=== PATIENT | female | born 2000 | race Caucasian/White ===

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

== ENCOUNTER 2022-10-04 21:32 | Emergency (ER) | payer SELFPAY ==
[2022-10-04] MEDS ORDERED: Acetaminophen 325 MG Tab PO ONE (22:06)
[2022-10-04] MEDS ORDERED: Ketorolac 30 MG/ML SDV IM ONE (22:56)
== END 2022-10-04 23:20 | disposition home or self-care (01) ==
LOC: MW.ED 21:32
DX: R07.89 Other chest pain (principal); Z91.09 Other allergy status, other than to drugs and biological substances
CPT/HCPCS: 71046; 93005; 96372; 99285; A9270; J1885; 93010; 99283

== ENCOUNTER 2022-11-23 21:01 | Emergency (ER) | payer SELFPAY ==
[2022-11-23] MEDS ORDERED: Cyclobenzaprine 10 MG Tab PO ONE (23:34)
[2022-11-23] MEDS ORDERED: Ibuprofen 600 MG Tab PO ONE (23:34)
== END 2022-11-23 23:44 | disposition home or self-care (01) ==
LOC: MW.ED 21:01
DX: S70.02XA Contusion of left hip, initial encounter (principal); S20.212A Contusion of left front wall of thorax, initial encounter; M41.9 Scoliosis, unspecified; Z91.048 Other nonmedicinal substance allergy status; Z79.899 Other long term (current) drug therapy; W00.0XXA Fall on same level due to ice and snow, initial encounter
CPT/HCPCS: 71101; 72100; 73502; 73562; 81025; 99283; A9270

== ENCOUNTER 2023-01-27 18:43 | Emergency (ER) | payer SELFPAY ==
[2023-01-27] MEDS ORDERED: Sodium Chloride 0.9% 1,000 ML IV ONE (20:03)
[2023-01-27] MEDS ORDERED: Ketorolac 30 MG/ML SDV IVPUSH ONE (20:03)
[2023-01-27] MEDS ORDERED: Ondansetron 4 MG/2 ML SDV IVPUSH ONE (20:03)
[2023-01-27 20:24] LABS: APPEARANCE,URINE SLT CLOUDY; BILIRUBIN,URINE NEGATIVE (NEGATIVE); COLOR,URINE DARK YELLOW; GLUCOSE,URINE NEGATIVE (NEGATIVE); KETONES,URINE NEGATIVE (NEGATIVE); LEUKOCYTE ESTERASE,URINE NEGATIVE (NEGATIVE); NITRITE,URINE NEGATIVE (NEGATIVE); OCCULT BLOOD,URINE NEGATIVE (NEGATIVE); PROTEIN,URINE NEGATIVE (NEGATIVE)
[2023-01-27 20:41] LABS: BASOPHILS PERCENT AUTO 0.2 % (0.0-1.5); EOSINOPHILS ABSOLUTE AUTO 0.5 K/uL (0.0-0.7); EOSINOPHILS PERCENT AUTO 4.4 % (0.0-7.0); HEMATOCRIT 39.1 % (36.0-46.0); HEMOGLOBIN 12.7 g/dL (12.0-16.0); LYMPHOCYTES ABSOLUTE AUTO 3.2 K/uL (0.6-2.4); LYMPHOCYTES PERCENT AUTO 28.7 % (16.0-40.0); MEAN CORPUSCULAR HEMOGLOBIN 25.6 pg (27.0-32.0); MEAN CORPUSCULAR HGB CONC 32.5 g/dL (31.0-37.0); MEAN CORPUSCULAR VOLUME 78.8 fL (80.0-98.0); MONOCYTES PERCENT AUTO 9.2 % (0.0-15.0); NEUTROPHILS ABSOLUTE AUTO 6.5 K/uL (1.4-5.7); NEUTROPHILS PERCENT AUTO 57.5 % (48.0-80.0); NRBC ABSOLUTE 0 K/uL; PLATELET COUNT,PLT 358 K/uL (150-400); RED BLOOD CELL COUNT 4.96 M/uL (4.30-5.90); WHITE BLOOD CELL COUNT,WBC 11.24 K/uL (4.0-11.0)
[2023-01-27 20:52] LABS: A/G RATIO 0.9 (0.9-1.6); ALBUMIN 3.6 g/dL (3.4-5.0); BILIRUBIN TOTAL 0.3 mg/dL (0.2-1.0); CALCIUM 8.9 mg/dL (8.5-10.1); CREATININE 0.6 mg/dL (0.6-1.0); EST CRCL DRUG DOSING (CG) 98.53 mL/min; POTASSIUM,K 3.5 mmol/L (3.5-5.1); PROTEIN TOTAL,TP 7.8 g/dL (6.4-8.2)
== END 2023-01-27 21:05 | disposition home or self-care (01) ==
LOC: MW.ED 18:43
DX: O21.9 Vomiting of pregnancy, unspecified (principal); Z91.048 Other nonmedicinal substance allergy status
CPT/HCPCS: 36415; 80053; 81003; 81025; 83690; 85025; 96361; 96374; 96375; 99284; J1885; J2405; J7030

== ENCOUNTER 2023-09-10 09:05 | Observation (INO) | payer MEDICAID ==
[2023-09-10] MEDS ORDERED: Diphtheria,Pertussis(Acell),Tetanus Vaccine 0.5 ML Syringe IM ONE (10:21)
[2023-09-10 10:56] LABS: APPEARANCE,URINE CLEAR; BILIRUBIN,URINE NEGATIVE (NEGATIVE); COLOR,URINE YELLOW; GLUCOSE,URINE NEGATIVE (NEGATIVE); KETONES,URINE NEGATIVE (NEGATIVE); LEUKOCYTE ESTERASE,URINE TRACE (NEGATIVE); NITRITE,URINE NEGATIVE (NEGATIVE); OCCULT BLOOD,URINE NEGATIVE (NEGATIVE); PH,URINE 7.5 (5.0-8.0); PROTEIN,URINE NEGATIVE (NEGATIVE); UROBILINOGEN,URINE 0.2 EU/dL (<2.0)
[2023-09-10 10:58] LABS: HEMATOCRIT 35.2 % (37.0-47.0); HEMOGLOBIN 10.5 g/dL (12.0-16.0); MEAN CORPUSCULAR HEMOGLOBIN 20.5 pg (28.0-32.0); MEAN PLATELET VOLUME 9.3 fL (9.4-12.3); PLATELET COUNT,PLT 317 K/uL (150-400); RED BLOOD CELL COUNT 5.12 M/uL (4.10-5.30); WHITE BLOOD CELL COUNT,WBC 11.97 K/uL (3.9-11.3)
[2023-09-10 11:04] LABS: AMPHETAMINES SCREEN, URINE NEGATIVE (CUTOFF=500); BARBITURATE SCREEN,URINE NEGATIVE (CUTOFF=200); BENZODIAZEPINES SCREEN,URINE NEGATIVE (CUTOFF=150); BUPRENORPHINE SCREEN,URINE NEGATIVE (CUTOFF=10); METHADONE SCREEN, URINE NEGATIVE (CUTOFF=200); METHAMPHETAMINES SCREEN, URINE NEGATIVE (CUTOFF=500); OXYCODONE SCREEN,URINE NEGATIVE (CUT0FF=100); PCP SCREEN,URINE NEGATIVE (CUTOFF=25); THC SCREEN,URINE 20 NG/ML NEGATIVE (CUTOFF=50)
[2023-09-10 11:10] LABS: BACTERIA,URINE FEW (NEGATIVE); EPITHELIAL CELLS,URINE MODERATE (NONE-FEW); RBC,URINE NONE SEEN (0-2/HPF); WBC,URINE 0-3 (0-5/HPF)
[2023-09-10 11:21] LABS: A/G RATIO 0.5 (0.9-1.6); ALBUMIN 2.6 g/dL (3.4-5.0); BILIRUBIN TOTAL 0.3 mg/dL (0.2-1.0); CALCIUM 9.1 mg/dL (8.5-10.1); CARBON DIOXIDE,CO2 24.4 mmol/L (21.0-32.0); CREATININE 0.6 mg/dL (0.6-1.0); EST CRCL DRUG DOSING (CG) 107.43 mL/min; POTASSIUM,K 4.2 mmol/L (3.5-5.1); PROTEIN TOTAL,TP 7.5 g/dL (6.4-8.2)
[2023-09-10 11:52] LABS: MEAN CORPUSCULAR HGB CONC 29.8 g/dL (32.0-36.0); MEAN CORPUSCULAR VOLUME 68.8 fL (83.0-99.0)
[2023-09-10 11:59] LABS: HEMOGLOBIN A1C 5.3 %
[2023-09-11 08:49] LABS: GROUP B STREP BY PCR NEGATIVE (NEGATIVE)
== END 2023-09-10 12:55 | disposition home or self-care (01) ==
LOC: MW.OB 09:05
PROVIDERS: ADMIT Obstetrics & Gynecology; ATTEND Obstetrics & Gynecology
DX: Z34.93 Encounter for supervision of normal pregnancy, unspecified, third trimester (principal); Z3A.36 36 weeks gestation of pregnancy; I10 Essential (primary) hypertension; J45.909 Unspecified asthma, uncomplicated; G40.509 Epileptic seizures related to external causes, not intractable, without status epilepticus
CPT/HCPCS: 59025; 76815; 76815-26; 80053; 80305-QW; 81001; 83036; 85027; 86592; 86762; 86803; 86850; 86900; 86901; 87086; 87340; 87389; 87653; 90715; 99222; J2790

== ENCOUNTER 2023-09-28 09:13 | Inpatient (IN) | payer MEDICAID ==
[2023-09-28] MEDS ORDERED: Morphine PF 10 MG/10 ML SDV ONE (09:47)
[2023-09-28] MEDS ORDERED: fentaNYL 100 MCG/2 ML SDV ONE (09:48)
[2023-09-28] MEDS ORDERED: Sodium Chloride 0.9% 20 ML SDV IV PRN (09:51)
[2023-09-28] MEDS ORDERED: Sodium Chloride 0.9% 2.5 ML Syringe FLUSH PRN (09:51)
[2023-09-28] MEDS ORDERED: ceFAZolin 2 GM in Sodium Chloride 0.9% 50 ML IV ONE (09:51)
[2023-09-28] MEDS ORDERED: Sodium Chloride 0.9% 10 ML Syringe FLUSH PRN (09:51)
[2023-09-28] MEDS ORDERED: Citric Acid/Sodium Citrate Solution 30 ML Cup PO ONE (09:51)
[2023-09-28] MEDS ORDERED: ceFAZolin 2 GM Vial ONE (09:56)
[2023-09-28] MEDS ORDERED: Lactated Ringers 1,000 ML IV SCH ×2 (10:00→11:15)
[2023-09-28] MEDS ORDERED: Oxytocin/0.9 % Sodium Chloride 30 UNIT/500 ML BAG IV SCH (10:00)
[2023-09-28] MEDS ORDERED: Metoclopramide 10 MG/2 ML SDV ONE (10:14)
[2023-09-28 10:15] LABS: HEMATOCRIT 34.3 % (37.0-47.0); HEMOGLOBIN 10.6 g/dL (12.0-16.0); MEAN CORPUSCULAR HEMOGLOBIN 20.3 pg (28.0-32.0); MEAN CORPUSCULAR HGB CONC 30.9 g/dL (32.0-36.0); MEAN CORPUSCULAR VOLUME 65.7 fL (83.0-99.0); MEAN PLATELET VOLUME 10.1 fL (9.4-12.3); PLATELET COUNT,PLT 442 K/uL (150-400); RED BLOOD CELL COUNT 5.22 M/uL (4.10-5.30); WHITE BLOOD CELL COUNT,WBC 24.88 K/uL (3.9-11.3)
[2023-09-28] MEDS ORDERED: Dexamethasone 4 MG/ML 5 ML MDV ONE (10:25)
[2023-09-28] MEDS ORDERED: dexmedeTOMIDine HCl 200 MCG/2 ML SDV ONE (10:25)
[2023-09-28] MEDS ORDERED: Calcium Chloride 10% 1 GM/10 ML Syringe ONE (10:29)
[2023-09-28] MEDS ORDERED: Tranexamic Acid 1,000 MG/10 ML Vial ONE (10:30)
[2023-09-28] MEDS ORDERED: Ondansetron 4 MG/2 ML SDV ONE ×2 (10:33)
[2023-09-28] MEDS ORDERED: Methylergonovine 0.2 MG/1 ML Amp IM PRN (11:07)
[2023-09-28] MEDS ORDERED: Ondansetron 4 MG/2 ML SDV IVPUSH PRN ×3 (11:07→11:42)
[2023-09-28] MEDS ORDERED: Acetaminophen/oxyCODONE 325-5 MG Tab PO PRN ×2 (11:07→11:42)
[2023-09-28] MEDS ORDERED: Lanolin 100% Cream 7 GM Tube TOP PRN (11:07)
[2023-09-28] MEDS ORDERED: Bisacodyl 10 MG Supp RECTAL PRN (11:07)
[2023-09-28] MEDS ORDERED: Oxytocin 10 Units/1 ML SDV IM PRN (11:07)
[2023-09-28] MEDS ORDERED: Misoprostol 200 MCG Tab RECTAL PRN (11:07)
[2023-09-28] MEDS ORDERED: diphenhydrAMINE 50 MG/ML SDV IVPUSH PRN ×2 (11:07→11:42)
[2023-09-28 11:12] LABS: PH,UMBILICAL ARTERIAL 7.205 (7.18-7.38); PH,UMBILICAL VENOUS 7.267 (7.25-7.45)
[2023-09-28] MEDS ORDERED: droPERidol 5 MG/2 ML SDV IVPUSH PRN (11:42)
[2023-09-28] MEDS ORDERED: Albuterol 0.083% 2.5 MG/3 ML Neb Soln NEB PRN (11:42)
[2023-09-28] MEDS ORDERED: Metoclopramide 10 MG/2 ML SDV IVPUSH PRN (11:42)
[2023-09-28] MEDS ORDERED: Morphine 2 MG/ML SYRINGE IVPUSH PRN (11:42)
[2023-09-28] MEDS ORDERED: fentaNYL 50 MCG/ML SDV IVPUSH PRN (11:42)
[2023-09-28] MEDS ORDERED: ePHEDrine 50 MG/ML SDV IVPUSH PRN (11:42)
[2023-09-28] MEDS ORDERED: fentaNYL 100 MCG/2 ML SDV IVPUSH PRN (11:42)
[2023-09-28] MEDS ORDERED: Naloxone 0.4 MG/ML SDV IVPUSH PRN (11:42)
[2023-09-28] MEDS ORDERED: HYDROmorphone 1 MG/ML Syringe IVPUSH PRN (11:42)
[2023-09-28] MEDS: Acetaminophen 1,000 MG in Premix Bag 1 BAG IV SCH ×3 (12:00→18:24)
[2023-09-28] MEDS ORDERED: Oxytocin 10 Units/1 ML SDV ONE ×3 (12:04)
[2023-09-28] MEDS ORDERED: Phenylephrine HCl 0.5 MG/5 ML AMP ONE (12:05)
[2023-09-28] MEDS ORDERED: Phenylephrine 1% 10 MG/ML SDV ONE (12:05)
[2023-09-28] MEDS: Ketorolac 30 MG/ML SDV IVPUSH SCH ×3 (17:21→23:13)
[2023-09-28] MEDS: Simethicone 80 MG Tab.Chew PO SCH (18:19)
[2023-09-28] MEDS: Docusate Sodium 100 MG Cap PO SCH (23:10)
[2023-09-29] MEDS: Simethicone 80 MG Tab.Chew PO SCH ×4 (00:18→18:45)
[2023-09-29] MEDS: Acetaminophen 1,000 MG in Premix Bag 1 BAG IV SCH ×2 (00:19→06:01)
[2023-09-29] MEDS: Ketorolac 30 MG/ML SDV IVPUSH SCH ×2 (05:00→11:30)
[2023-09-29 06:33] LABS: HEMATOCRIT 19.7 % (37.0-47.0); HEMOGLOBIN 6.1 g/dL (12.0-16.0)
[2023-09-29] MEDS: Docusate Sodium 100 MG Cap PO SCH ×2 (08:43→20:45)
[2023-09-29] MEDS: Acetaminophen/oxyCODONE 325-5 MG Tab PO PRN (20:45)
[2023-09-30] MEDS: Ibuprofen 800 MG Tab PO PRN ×3 (00:21→20:14)
[2023-09-30] MEDS: Simethicone 80 MG Tab.Chew PO SCH ×4 (00:21→17:05)
[2023-09-30 07:05] LABS: HEMATOCRIT 24.5 % (37.0-47.0); HEMOGLOBIN 7.9 g/dL (12.0-16.0)
[2023-09-30] MEDS ORDERED: Sodium Ferric Gluconate Cmplex 125 MG in Sodium Chloride 0.9% 100 ML IV SCH (09:00)
[2023-09-30] MEDS: Docusate Sodium 100 MG Cap PO SCH ×2 (10:12→20:16)
[2023-09-30] MEDS: Acetaminophen/oxyCODONE 325-5 MG Tab PO PRN ×2 (11:09→20:15)
[2023-10-01] MEDS: Simethicone 80 MG Tab.Chew PO SCH ×2 (01:01→06:05)
[2023-10-01] MEDS: Acetaminophen/oxyCODONE 325-5 MG Tab PO PRN (01:05)
[2023-10-01] MEDS: Ibuprofen 800 MG Tab PO PRN (09:47)
[2023-10-01] MEDS: Docusate Sodium 100 MG Cap PO SCH (09:48)
== END 2023-10-01 13:02 | disposition home or self-care (01) | DRG 787 ==
LOC: MW.OBCHECK 09:13 → MW.OB 10:15 → UNDOADMIN 10:15 → MW.OB 10:19
PROVIDERS: ADMIT Obstetrics & Gynecology; ATTEND Obstetrics & Gynecology
PROC: 30233N1 Transfusion of Nonautologous Red Blood Cells into Peripheral Vein, Percutaneous Approach (ICD-10-PCS; 2023-09-28)
PROC: 10D00Z1 Extraction of Products of Conception, Low, Open Approach (ICD-10-PCS; principal; 2023-09-28 10:13)
DX: O34.211 Maternal care for low transverse scar from previous cesarean delivery (principal); D62 Acute posthemorrhagic anemia; O90.81 Anemia of the puerperium; Z37.0 Single live birth; Z3A.39 39 weeks gestation of pregnancy
CPT/HCPCS: 36415; 36430; 59025; 82803; 85014; 85018; 85027; 85460; 86592; 86850; 86900; 86901; 86920; 86921; 86922; A9270-GY; J0131; J0690; J1100; J1885; J2274; J2371; J2405; J2590; J2765; J2790; J2916; J3010; J3490; J7120; P9016

== ENCOUNTER 2024-02-13 01:09 | Emergency (ER) | payer MEDICAID ==
[2024-02-13 01:30] LABS: BASOPHILS ABSOLUTE AUTO 0.05 K/uL (0.00-0.20); BASOPHILS PERCENT AUTO 0.4 % (0.0-1.0); EOSINOPHILS ABSOLUTE AUTO 0.19 K/uL (0.00-0.45); EOSINOPHILS PERCENT AUTO 1.6 % (0.0-6.0); HEMATOCRIT 35.1 % (37.0-47.0); IMMATURE GRAN ABSOLUTE AUTO 0.04 K/uL (0.00-0.05); IMMATURE GRAN PERCENT AUTO 0.3 % (0.0-0.4); LYMPHOCYTES ABSOLUTE AUTO 2.45 K/uL (1.00-4.80); LYMPHOCYTES PERCENT AUTO 20.5 % (24.0-44.0); MEAN CORPUSCULAR HEMOGLOBIN 21.7 pg (28.0-32.0); MEAN CORPUSCULAR HGB CONC 31.3 g/dL (32.0-36.0); MEAN CORPUSCULAR VOLUME 69.4 fL (83.0-99.0); MONOCYTES ABSOLUTE AUTO 1.12 K/uL (0.00-0.80); MONOCYTES PERCENT AUTO 9.4 % (0.0-8.0); NEUTROPHILS ABSOLUTE AUTO 8.09 K/uL (1.80-7.70); NEUTROPHILS PERCENT AUTO 67.8 % (41.0-71.0); PLATELET COUNT,PLT 402 K/uL (150-400); RED BLOOD CELL COUNT 5.06 M/uL (4.10-5.30); WHITE BLOOD CELL COUNT,WBC 11.94 K/uL (3.9-11.3)
[2024-02-13] MEDS: Sodium Chloride 0.9% 1,000 ML IV ONE ×2 (01:33→02:06)
[2024-02-13] MEDS: LORazepam 1 MG Tab PO ONE (01:33)
[2024-02-13] MEDS: Diazepam 5 MG Tab PO ONE (01:34)
[2024-02-13 01:47] LABS: INR 1.12 (0.86-1.11)
[2024-02-13 02:08] LABS: A/G RATIO 0.9 (0.9-1.6); ALANINE AMINOTRANSFERASE,ALT 14 IU/L (14-63); ALBUMIN 3.5 g/dL (3.4-5.0); ALKALINE PHOSPHATASE 81 U/L (46-116); ASPARTATE AMNIOTRANSFERASE,AST 13 IU/L (15-37); BILIRUBIN TOTAL 0.2 mg/dL (0.2-1.0); BLOOD UREA NITROGEN,BUN 15 mg/dL (7.0-18.0); CALCIUM 8.7 mg/dL (8.5-10.1); CARBON DIOXIDE,CO2 27.6 mmol/L (21.0-32.0); CHLORIDE,CL 102 mmol/L (98-107); CREATININE 0.7 mg/dL (0.6-1.0); EST CRCL DRUG DOSING (CG) 91.32 mL/min; ESTIMATED GFR 126 mL/min (>60); GLUCOSE RANDOM 80 mg/dL (74-106); MAGNESIUM 1.6 mg/dL (1.8-2.4); POTASSIUM,K 3.3 mmol/L (3.5-5.1); PROTEIN TOTAL,TP 7.6 g/dL (6.4-8.2); SODIUM,NA 140 mmol/L (136-145); TSH ULTRASENSITIVE 2.66 uIU/mL (0.36-3.74)
[2024-02-13] MEDS: Potassium Chloride 20 MEQ Tab.ER PO ONE (02:36)
[2024-02-13] MEDS: Magnesium Sulfate/Water 2 GM in Premix Bag 1 BAG IV ONE (02:37)
[2024-02-13] MEDS: Iopamidol 755 MG/ML 500 ML Multipack Bottle IVPUSH ONE (03:17)
== END 2024-02-13 03:57 | disposition home or self-care (01) ==
LOC: MW.ED 01:09
DX: R07.9 Chest pain, unspecified (principal); R06.02 Shortness of breath; Z79.899 Other long term (current) drug therapy; Z75.8 Other problems related to medical facilities and other health care
CPT/HCPCS: 36415; 71045; 71275; 80053; 83735; 84443; 84484; 84703; 85025; 85379; 85610; 85730; 93005; 96361; 96365; 99285; A9270; J3475; J7030; Q9967; 93010; 99284

== ENCOUNTER 2024-03-18 23:24 | Emergency (ER) | payer MEDICAID ==
[2024-03-18] MEDS: Acetaminophen 325 MG Tab PO ONE (23:47)
== END 2024-03-19 01:02 | disposition home or self-care (01) ==
LOC: MW.ED 23:24
DX: S93.401A Sprain of unspecified ligament of right ankle, initial encounter (principal); S93.601A Unspecified sprain of right foot, initial encounter; Z79.899 Other long term (current) drug therapy; X50.1XXA Overexertion from prolonged static or awkward postures, initial encounter; Z75.8 Other problems related to medical facilities and other health care
CPT/HCPCS: 73610; 73620; 99283; A9270

== ENCOUNTER 2024-04-29 16:57 | Emergency (ER) | payer MEDICAID ==
[2024-04-29] MEDS: traMADol 50 MG Tab PO STA (17:44)
== END 2024-04-29 18:18 | disposition home or self-care (01) ==
LOC: MW.ED 16:57
DX: K04.7 Periapical abscess without sinus (principal); H66.91 Otitis media, unspecified, right ear; Z75.8 Other problems related to medical facilities and other health care; Z79.899 Other long term (current) drug therapy
CPT/HCPCS: 99283; A9270